=== PATIENT | male | born 1975 | race Caucasian/White ===

== ENCOUNTER 2020-06-25 12:28 | Day surgery (SDC) | payer BC, OTHER ==
[2020-06-23 08:54] LABS: ALBUMIN 3.6 g/dL (3.4-5.0); ANION GAP 4 mmol/L (5-15); BASOPHILS % (AUTO) 1 % (0-1); CALCIUM 8.8 mg/dL (8.5-10.1); CHLORIDE 107 mmol/L (98-107); EOSINOPHILS % (AUTO) 14 % (1-7); LYMPHOCYTES % (AUTO) 20 % (22-44); MEAN CORPUSCULAR HEMOGLOBIN 30.8 pg (27.5-34.5); MEAN CORPUSCULAR HGB CONC 34.3 g/dL (33.2-36.2); MEAN PLATELET VOLUME 7.6 fL (7.4-10.4); MONOCYTES % (AUTO) 6 % (2-9); NEUTROPHILS % (AUTO) 60 % (42-75); PLATELET COUNT 338 x10^3/uL (130-400); RED BLOOD COUNT 4.84 x10^6/uL (4.38-5.82)
[2020-06-23 08:55] LABS: MD NO
[2020-06-23 08:59] LABS: ALANINE AMINOTRANSFERASE 25 U/L (12-78); ALKALINE PHOSPHATASE 89 U/L (45-117); BILIRUBIN,TOTAL 0.7 mg/dL (0.2-1.0)
[2020-06-23 09:18] LABS: CREATININE 0.92 mg/dL (0.7-1.3)
[~2020-06-25] VITALS: Ht 162.6 cm; Wt 43.2 kg
[~2020-06-25 12:28] MED LIST: LACT1CAP35 PO
[2020-06-25 12:55] VITALS: BP 132/84
[2020-06-25] MEDS ORDERED: CHLORHEXIDINE 15 ML UDC ONE (12:57)
[2020-06-25] MEDS ORDERED: DIAZEPAM 5 MG/ML, 2ML IVPush PRN (13:00)
[2020-06-25] MEDS ORDERED: LACTATED RINGERS 1,000 ML IV SCH (13:00)
[2020-06-25] MEDS ORDERED: HALOPERIDOL 5 MG/ML IV PRN (13:00)
[2020-06-25] MEDS ORDERED: PROMETHAZINE 25 MG/ML, 1ML IVPush PRN (13:00)
[2020-06-25] MEDS ORDERED: METOCLOPRAMIDE 5 MG/ML, 2ML IVPush PRN (13:00)
[2020-06-25] MEDS ORDERED: MEPERIDINE/PF 25MG/0.5ML IVPush PRN (13:00)
[2020-06-25] MEDS ORDERED: ONDANSETRON 2MG/ML, 2ML IVPush PRN (13:00)
[2020-06-25] MEDS ORDERED: OXYcodone 5 MG/5 ML ORAL.SOL UDC PO PRN (13:00)
[2020-06-25] MEDS ORDERED: EPHEDRINE 50 MG/ML, 1ML IVPush PRN (13:00)
[2020-06-25] MEDS ORDERED: FENTANYL PF 100 MCG/2ML IV PRN (13:00)
[2020-06-25] MEDS ORDERED: HYDROmorphone 1 MG/ML, 1ML INJ IVPush PRN (13:00)
[2020-06-25] MEDS ORDERED: DIPHENHYDRAMINE 50 MG/ML, 1ML IVPush PRN (13:00)
[2020-06-25] MEDS ORDERED: CHLORHEXIDINE 15 ML UDC PO ONE (13:00)
[2020-06-25] MEDS ORDERED: LABETALOL 5MG/ML, 20ML IV PRN (13:00)
[2020-06-25] MEDS ORDERED: METOPROLOL 1 MG/ML, 5ML IV PRN (13:00)
[2020-06-25] MEDS ORDERED: hydrALAzine 20 MG/ML, 1ML IV PRN (13:00)
[2020-06-25] MEDS ORDERED: ACETAMINOPHEN 325 MG TABLET PO PRN (13:00)
[2020-06-25] MEDS ORDERED: FENTANYL PF 100 MCG/2ML ONE (13:24)
[2020-06-25] MEDS ORDERED: MIDAZOLAM 1 MG/ML, 2ML ONE (13:24)
[2020-06-25] MEDS ORDERED: HYDROmorphone 1 MG/ML, 1ML INJ ONE (13:24)
[2020-06-25] MEDS ORDERED: BUPIVACAINE/PF 0.5% ONE (14:18)
[2020-06-25] MEDS ORDERED: EPINEPHRINE 1 MG/ML, 1ML ONE (14:18)
[2020-06-25] MEDS ORDERED: PHENYLEPHRINE 10 MG/ML ONE (14:35)
[2020-06-25] MEDS ORDERED: PROPOFOL 10 MG/ML, 20ML ONE (14:35)
[2020-06-25] MEDS ORDERED: CEFAZOLIN 1,000 MG ONE (14:35)
[2020-06-25] MEDS ORDERED: ONDANSETRON 2MG/ML, 2ML ONE (14:35)
[2020-06-25] MEDS ORDERED: DEXAMETHASONE 4 MG/ML, 1ML ONE (14:35)
[2020-06-25] MEDS ORDERED: NEOSPORIN OINT, 15GM ONE (15:12)
[2020-06-25] MEDS ORDERED: ACETAMINOPHEN 650 MG/20.3 ML UDC ONE (17:16)
== END 2020-06-25 18:35 | disposition home or self-care (01) ==
LOC: OUT 12:28
PROVIDERS: ATTEND Urology
DX: C62.91 Malignant neoplasm of right testis, unspecified whether descended or undescended (principal); Z98.890 Other specified postprocedural states; Z79.899 Other long term (current) drug therapy; Z20.822 Contact with and (suspected) exposure to COVID-19
CPT/HCPCS: 36415; 54530; 80053; 85025; 88307; J0171; J0690; J1100; J1170; J2250; J2370; J2405; J2704; J3010; J7120; U0003